=== PATIENT | male | born 1980 | race Caucasian/White ===

== ENCOUNTER 2018-06-06 11:37 | Emergency (ER) | payer MEDICAID, OTHER ==
[~2018-06-06] VITALS: Ht 170.2 cm; Wt 62.6 kg
[2018-06-06 12:44] VITALS: BP 141/95
[2018-06-06] MEDS ORDERED: HYDROcodone-ACET 7.5/325MG TAB PO ONE (14:00)
== END 2018-06-06 14:15 | disposition home or self-care (01) ==
LOC: ER 11:37
DX: S01.531A Puncture wound without foreign body of lip, initial encounter (principal); S60.221A Contusion of right hand, initial encounter; Y04.2XXA Assault by strike against or bumped into by another person, initial encounter; Y93.39 Activity, other involving climbing, rappelling and jumping off; Y92.89 Other specified places as the place of occurrence of the external cause; Y99.8 Other external cause status
CPT/HCPCS: 73130

== ENCOUNTER 2018-09-13 20:04 | Emergency (ER) | payer MEDICAID ==
[~2018-09-13] VITALS: Ht 165.1 cm; Wt 59.9 kg
[2018-09-13 20:43] VITALS: BP 150/100
== END 2018-09-13 23:36 | disposition left against medical advice (07) ==
LOC: EDBD 20:04 → ER 20:07
DX: M54.2 Cervicalgia (principal); Z53.21 Procedure and treatment not carried out due to patient leaving prior to being seen by health care provider
CPT/HCPCS: 72125